=== PATIENT | female | born 1985 | race Caucasian/White ===

== ENCOUNTER 2019-12-10 14:15 | Inpatient (IN) ==
[2019-12-10] MEDS ORDERED: Ringers Solution, Lactated 1,000 ML IVC ONE (14:24)
[2019-12-10] MEDS ORDERED: Oxytocin 20 units/ LR 1000 mL 20 UNIT/1,000 ML BAG IVC ONE (14:24)
[2019-12-10] MEDS ORDERED: Famotidine 20 MG/2 ML VIAL IVP ONE (14:24)
[2019-12-10] MEDS ORDERED: CeFAZolin 2,000 MG/50 ML BAG IVPB ONE (14:24)
[2019-12-10] MEDS ORDERED: Metoclopramide 10 MG/2 ML VIAL IVP ONE (14:24)
[2019-12-10] MEDS ORDERED: Azithromycin 500 MG in 0.9 % Sodium Chloride 250 ML IVPB ONE (15:31)
[2019-12-10 15:36] LABS: Basophils % 0.2 %; Eosinophils % 0.1 %; Hematocrit 38.6 % (35.3-44.9); Immature Granulocytes % 0.5 % (0-4); Lymphocytes # 1.8 K/mcL (0.6-4.6); Lymphocytes % 11.8 %; Mean Corpuscular HGB Conc 33.7 g/dL (31.6-35.5); Mean Corpuscular Hemoglobin 28.6 pg (28.0-33.3); Mean Corpuscular Volume 84.8 fL (83.0-100.0); Mean Platelet Volume 10.6 fL (9.4-12.4); Monocytes # 0.8 K/mcL (0.0-1.3); Monocytes % 5.1 %; Neutrophils # 12.5 K/mcL (1.6-8.9); Platelet Count 207 K/mcL (140-400); Red Blood Count 4.55 M/mcL (3.82-4.97); Red Cell Distribution Width 12.6 % (11.5-14.5); Segmented Neutrophils % 82.3 %; White Blood Count 15.2 K/mcL (4.3-11.1)
[2019-12-10 15:42] LABS: Amphetamine Screen,Urine Negative ng/mL (Cutoff=1000); Barbiturate Screen,Urine Negative ng/mL (Cutoff=200); Benzodiazepines Screen,Urine Negative ng/mL (Cutoff=200); Cannabinoid Screen,Urine Negative ng/mL (Cutoff = 50); Cocaine Screen,Urine Negative ng/mL (Cutoff= 300); Opiate Screen,Urine Negative ng/mL (Cutoff=300); Phencyclidine Screen,Urine Negative ng/mL (Cutoff=25)
[2019-12-10] MEDS ORDERED: *HR* Morphine Sulfate/PF 10 MG/10 ML AMPUL ONE (15:47)
[2019-12-10] MEDS ORDERED: Ibuprofen 400 MG TABLET PO PRN (15:54)
[2019-12-10] MEDS ORDERED: Naloxone 0.4 MG/ML INJ IVP PRN ×2 (15:54→19:47)
[2019-12-10] MEDS ORDERED: Morphine Sulfate 2 MG/ML SYRINGE IVP PRN (15:54)
[2019-12-10] MEDS ORDERED: *HR* OxyCODONE/APAP 5/325 TABLET PO PRN (15:54)
[2019-12-10] MEDS ORDERED: Ondansetron 4 MG/2 ML VIAL IVP PRN ×2 (15:54→19:47)
[2019-12-10] MEDS ORDERED: *HR* HYDROmorphone (PF) 1 MG/ML SYRINGE IVP PRN (15:54)
[2019-12-10] MEDS ORDERED: *HR* Phenylephrine 10 MG/ML VIAL ONE (16:11)
[2019-12-10] MEDS ORDERED: Dexamethasone 4 MG/ML VIAL ONE (16:13)
[2019-12-10] MEDS ORDERED: Ondansetron 4 MG/2 ML VIAL ONE (16:13)
[2019-12-10 16:17] LABS: Varicella Zoster IgG Antibody Positive
[2019-12-10] MEDS ORDERED: *HR* Oxytocin 10 UNIT/ML VIAL IM ONE (16:21)
[2019-12-10 17:23] LABS: Hepatitis B Surface Antigen Nonreactive (Nonreactive)
[2019-12-10 17:52] LABS: HIV-1&2 Antibody & p24 Ag Nonreactive (Nonreactive)
[2019-12-10 18:18] LABS: Rubella IgG Antibody Equivocal (POSITIVE)
[2019-12-10] MEDS ORDERED: Sennosides 8.6 MG TABLET PO PRN (19:47)
[2019-12-10] MEDS ORDERED: Oxytocin 20 units/ LR 1000 mL 20 UNIT/1,000 ML BAG IVC SCH (19:47)
[2019-12-10] MEDS ORDERED: Ringers Solution, Lactated 1,000 ML IVC SCH (19:47)
[2019-12-10] MEDS ORDERED: Simethicone 80 MG TAB.CHEW PO PRN (19:47)
[2019-12-10] MEDS ORDERED: *HR* OxyCODONE/APAP 10/325 TABLET PO PRN (19:47)
[2019-12-10] MEDS ORDERED: Metoclopramide 10 MG/2 ML VIAL IVP PRN (19:47)
[2019-12-10] MEDS: metroNIDAZOLE 500 MG TABLET PO SCH (21:39)
[2019-12-10] MEDS: cephALEXin 500 MG CAPSULE PO SCH (21:39)
[2019-12-11] MEDS: Ibuprofen 600 MG TABLET PO PRN ×2 (04:00→21:24)
[2019-12-11 07:01] LABS: Basophils # 0.1 K/mcL (0.0-0.2); Basophils % 0.3 %; Eosinophils # 0.1 K/mcL (0.0-0.6); Eosinophils % 0.3 %; Hematocrit 38.1 % (35.3-44.9); Hemoglobin 12.4 g/dL (11.5-15.4); Immature Granulocytes % 0.6 % (0-4); Lymphocytes # 2.4 K/mcL (0.6-4.6); Lymphocytes % 12.4 %; Mean Corpuscular HGB Conc 32.5 g/dL (31.6-35.5); Mean Corpuscular Hemoglobin 27.6 pg (28.0-33.3); Mean Corpuscular Volume 84.9 fL (83.0-100.0); Mean Platelet Volume 10.1 fL (9.4-12.4); Monocytes # 1.2 K/mcL (0.0-1.3); Monocytes % 6.4 %; Neutrophils # 15.3 K/mcL (1.6-8.9); Platelet Count 213 K/mcL (140-400); Red Blood Count 4.49 M/mcL (3.82-4.97); Red Cell Distribution Width 12.7 % (11.5-14.5); White Blood Count 19.1 K/mcL (4.3-11.1)
[2019-12-11] MEDS: cephALEXin 500 MG CAPSULE PO SCH ×3 (07:16→21:23)
[2019-12-11] MEDS: Prenatal Vit/FA 1 EACH TABLET PO SCH (07:16)
[2019-12-11] MEDS: metroNIDAZOLE 500 MG TABLET PO SCH ×3 (07:16→21:24)
[2019-12-11] MEDS: *HR* OxyCODONE/APAP 5/325 TABLET PO PRN ×2 (12:49→18:51)
[2019-12-12] MEDS: Ibuprofen 600 MG TABLET PO PRN (05:03)
[2019-12-12] MEDS: Prenatal Vit/FA 1 EACH TABLET PO SCH (09:01)
[2019-12-12] MEDS: *HR* OxyCODONE/APAP 5/325 TABLET PO PRN (09:01)
[2019-12-12] MEDS: metroNIDAZOLE 500 MG TABLET PO SCH (09:01)
[2019-12-12] MEDS: cephALEXin 500 MG CAPSULE PO SCH (09:02)
[2019-12-12 09:06] VITALS: BP 109/74
== END 2019-12-12 14:20 | disposition home or self-care (01) | DRG 540 ==
LOC: 1NENULAB 14:15 → 1NENUOBS 19:47
PROVIDERS: ADMIT Obstetrics & Gynecology; ATTEND Obstetrics & Gynecology